=== PATIENT | male | born 1935 | race Caucasian/White ===

== ENCOUNTER 2024-09-01 07:25 | Inpatient (IN) | payer MEDICARE, OTHER ==
[~2024-09-01] VITALS: Ht 165.1 cm; Wt 80.3 kg
[2024-09-01] MEDS ORDERED: dexaMETHasone SOD PHOSPHATE 2 ML ONE (09:29)
[2024-09-01] MEDS ORDERED: VANCOMYCIN 1 GM VIAL ONE (09:29)
[2024-09-01] MEDS ORDERED: LIDOCAINE 2%-EPI 1:100,000 30 ML VIAL ONE (09:29)
[2024-09-01] MEDS ORDERED: ANESTHESIA TRAY IN PYXIS 1 EA TRAY MC ONE (09:29)
[2024-09-01] MEDS ORDERED: LABETALOL HCL IV 100MG VIAL ONE (10:30)
[2024-09-01] MEDS ORDERED: HYDROMORPHONE 1 MG/1 ML DISP.SYRIN IV PRN (15:00)
[2024-09-01] MEDS ORDERED: ONDANSETRON HCL/PF 4 MG/2 ML VIAL IVP PRN (15:00)
[2024-09-01] MEDS ORDERED: ACETAMINOPHEN 325 MG TABLET PO PRN (15:00)
[2024-09-01] MEDS ORDERED: ALLO300T2 PO (15:01)
[2024-09-01] MEDS ORDERED: TELM80TA2 PO (15:01)
[2024-09-01] MEDS ORDERED: VIT1CAPS9 PO (15:01)
[2024-09-01] MEDS ORDERED: HYDR453. TP (15:01)
[2024-09-01] MEDS ORDERED: VITA1TAB56 PO (15:01)
[2024-09-01] MEDS ORDERED: KETO15CR2 TP (15:01)
[2024-09-01] MEDS ORDERED: MAGN400T30 PO (15:01)
[2024-09-01] MEDS ORDERED: CLOP75TA15 PO (15:01)
[2024-09-01] MEDS ORDERED: ATOR40TA PO (15:01)
[2024-09-01] MEDS ORDERED: ILEVRO RIGHTEYE (15:01)
[2024-09-01] MEDS ORDERED: CHOL100043 PO (15:01)
[2024-09-01] MEDS: IV NS 0.9% 1,000 ML IV PRN (16:46)
[2024-09-01 19:55] VITALS: BP_SYST 100; TEMP 98.6; O2SAT 94
[2024-09-02 08:39] VITALS: BP 103/60; TEMP 97.6; O2SAT 97
[2024-09-02] MEDS: LOSARTAN POTASSIUM 50 MG TABLET PO SCH (09:00)
[2024-09-02 09:09] VITALS: BP 103/60; TEMP 97.6; O2SAT 98
[2024-09-02] MEDS: ATORVASTATIN 40 MG TABLET PO SCH (10:21)
[2024-09-02] MEDS: HYDROCORTISONE 1% CREAM 28.35 GM TUBE TP SCH (10:22)
== END 2024-09-02 12:25 | disposition home or self-care (01) | DRG 496 ==
LOC: DS 07:25 → MED 14:04
PROVIDERS: ADMIT Internal Medicine; ATTEND Internal Medicine
PROC: 0N5T0ZZ Destruction of Right Mandible, Open Approach (ICD-10-PCS; principal; 2024-09-01)
PROC: 0NPW0JZ Removal of Synthetic Substitute from Facial Bone, Open Approach (ICD-10-PCS; principal; 2024-09-01)
PROC: 0NST04Z Reposition Right Mandible with Internal Fixation Device, Open Approach (ICD-10-PCS; principal; 2024-09-01)
PROC: 0NUT07Z Supplement Right Mandible with Autologous Tissue Substitute, Open Approach (ICD-10-PCS; principal; 2024-09-01)
DX: T84.7XXA Infection and inflammatory reaction due to other internal orthopedic prosthetic devices, implants and grafts, initial encounter (principal); S02.609K Fracture of mandible, unspecified, subsequent encounter for fracture with nonunion; T81.83XA Persistent postprocedural fistula, initial encounter; Y83.8 Other surgical procedures as the cause of abnormal reaction of the patient, or of later complication, without mention of misadventure at the time of the procedure; Y92.89 Other specified places as the place of occurrence of the external cause; M27.2 Inflammatory conditions of jaws; I25.10 Atherosclerotic heart disease of native coronary artery without angina pectoris; I10 Essential (primary) hypertension; M10.9 Gout, unspecified; X58.XXXD Exposure to other specified factors, subsequent encounter; D16.5 Benign neoplasm of lower jaw bone; E78.5 Hyperlipidemia, unspecified; Z95.5 Presence of coronary angioplasty implant and graft; Z88.1 Allergy status to other antibiotic agents
CPT/HCPCS: 88305-TC; 88311-TC; 88312-TC; A4223; A4338; C1713; G0378; J0690; J1100; J1885; J2704; J3370; J3490; J7030